=== PATIENT | male | born 1995 | race Caucasian/White ===

== ENCOUNTER 2018-06-24 16:37 | Emergency (ER) | payer OTHER ==
[2018-06-24 16:43] VITALS: BP 121/77; PULSE 59; TEMP 98.4; BMI 32.8
--- NOTE | 2018-06-24 17:04 | PDOC ---
History of Present Illness - General Chief Complaint: Eye Problem Stated Complaint: EYE SWELLING AND PAIN Time Seen by Provider: 06/24/18 17:02 History Source: Patient Exam Limitations: No Limitations - History of Present Illness Initial Comments: 06/24/18 17:32 Onset of swelling, tenderness, redness to right lower leg last week. States is progressively worsened. Past few days has noticed a lesion inside eye. Has been using hot soaks which has drawn it to surface and has drained some purulent drainage this morning. Patient was concerned because the redness is not resolving. Timing/Duration: unsure, 1 week Severity: mild, moderate Associated Symptoms: reports: denies symptoms. denies: fever/chills, headaches , malaise Past History - Travel Traveled outside of the country in the last 30 days: No Close contact w/someone who was outside of country & ill: No - Past Medical History Allergies/Adverse Reactions: Allergies Allergy/AdvReac Type Severity Reaction Status Date / Time No Known Allergies Allergy Verified 06/24/18 16:43 Home Medications: Ambulatory Orders Amox-Tr/K Cl [Augmentin 875Mg Tablet] 1 tab PO BID #20 tablet 06/24/18 Erythromycin 0.5% Eye Ointment [Erythromycin 0.5% Eye Ointment -] 1 applic OD TID 5 Days #1 tube 06/24/18 COPD: No - Suicide/Smoking/Psychosocial Hx Smoking History: Never smoked Review of Systems - Review of Systems Able to Perform ROS?: Yes Is the patient limited Khmer proficient: Yes Constitutional: Yes: Symptoms Reported, See HPI, Malaise. No: Fever HEENTM: Yes: Symptoms Reported, See HPI, Eye Pain (right eye lower lid), Tearing. No: Nose Congestion, Throat Pain Respiratory: Yes: See HPI. No: Symptoms reported, Cough Integumentary: Yes: Symptoms Reported, See HPI, Erythema, Lesions All Other Systems: Reviewed and Negative *Physical Exam - Vital Signs Last Vital Signs Temp Pulse Resp BP Pulse Ox 98.4 F 59 L 18 121/77 99 06/24/18 16:41 06/24/18 16:41 06/24/18 16:41 06/24/18 16:41 06/24/18 16:41 - Physical Exam General Appearance: Yes: Nourished, Appropriately Dressed, Apparent Distress, Mild Distress HEENT: positive: CHEN, Normal ENT Inspection, TMs Normal, Pharynx Normal, Lesions (swelling, redness, tenderness to right lower lid with pointing lesion noted in the anterior aspect consistent with a stye. Has no crepitus or step- offs, no orbital tenderness or bone pain.) Neck: positive: Supple, Lymphadenopathy (R), Lymphadenopathy (L). 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 Given a watch and wait Augmentin prescription if swelling to face and eye becomes worse, fevers worsen, or pain infection spreads. Understands to follow-up immediately if Augmentin needs to be started. *DC/Admit/Observation/Transfer Diagnosis at time of Disposition: Sty, internal Qualifiers: Laterality: right Eyelid: lower Qualified Code(s): H00.022 - Hordeolum internum right lower eyelid - Discharge Dispostion Disposition: HOME Condition at time of disposition: Stable Decision to Admit order: No - Prescriptions Prescriptions: Amox-Tr/K Cl [Augmentin 875Mg Tablet] 1 tab PO BID #20 tablet Erythromycin 0.5% Eye Ointment [Erythromycin 0.5% Eye Ointment -] 1 applic OD TID 5 Days #1 tube - Referrals Referrals: Jessica Rasmussen MD [Primary Care Provider] - - Patient Instructions Printed Discharge Instructions: DI for Hordeolum Additional Instructions: Rest, avoid rubbing eyes Hot soaks to I often as possible to help draw the sterile infection to a head and allow to drain This is not generally a dangerous infection and will usually go away hot soaks Erythromycin ointment to affected eye 3 times a day until healed UseD primarily for lubricating purposE If I starts to swell more, noticed more facial swelling start Augmentin and follow-up with your doctor as soon as possible, return to emergency department for further evaluation Avoid contact with others until redness and discharge is gone from eyes. Followup with ophthalmology or private physician as needed - Post Discharge Activity Forms/Work/School Notes: Back to Work
[2018-06-24] MEDS ORDERED: ERYTHROMYCIN 0.5% OPHTHALMIC OINTMENT 3.5 GM TUBE OS ONE (17:27)
[2018-06-24] MEDS ORDERED: ERYTHROMYCIN 0.5% OPHTHALMIC OINTMENT 3.5 GM TUBE ONE (17:31)
== END 2018-06-24 17:40 | disposition home or self-care (01) ==
LOC: JERFT 16:37
DX: H00.022 Hordeolum internum right lower eyelid (principal)
CPT/HCPCS: 99281-25

== ENCOUNTER 2021-10-18 19:00 | Emergency (ER) | payer OTHER ==
[2021-10-18 19:25] VITALS: BP 126/70; PULSE 94; TEMP 99.6; BMI 33.7
[2021-10-18] MEDS ORDERED: KETOROLAC TROMETHAMINE 30 MG/1 ML VIAL IM ONE (19:55)
[2021-10-18] MEDS ORDERED: ACETAMINOPHEN 325 MG TABLET (FP) PO ONE (19:55)
[2021-10-18] MEDS ORDERED: KETOROLAC TROMETHAMINE 30 MG/1 ML VIAL ONE (20:47)
[2021-10-18] MEDS ORDERED: ACETAMINOPHEN 325 MG TABLET (FP) ONE (20:47)
== END 2021-10-18 21:19 | disposition home or self-care (01) ==
LOC: FER 19:00
PROC: 3E0233Z Introduction of Anti-inflammatory into Muscle, Percutaneous Approach (ICD-10-PCS; principal; 2021-10-18)
DX: S83.92XA Sprain of unspecified site of left knee, initial encounter (principal); X50.0XXA Overexertion from strenuous movement or load, initial encounter; Y93.67 Activity, basketball
CPT/HCPCS: 73562-TC-LT-FY; 96372; 99284-25

== ENCOUNTER 2021-11-20 14:45 | Emergency (ER) | payer OTHER ==
[2021-11-20] MEDS ORDERED: ACETAMINOPHEN 325 MG TABLET (FP) ONE (14:52)
[2021-11-20 15:00] VITALS: BP 132/76; PULSE 77; TEMP 97.8; BMI 32.6
== END 2021-11-20 16:00 | disposition home or self-care (01) ==
LOC: FER 14:45
DX: M25.462 Effusion, left knee (principal)
CPT/HCPCS: 99283-25